=== PATIENT | male | born 1970 | race Caucasian/White ===

== ENCOUNTER 2020-12-04 11:45 | Observation (INO) | payer OTHER ==
[2020-12-04] VITALS (8 sets, daily range): BP systolic 116–144; BP diastolic 70–87
[~2020-12-04] VITALS: Ht 190.5 cm; Wt 164.0 kg
[2020-12-04 15:11] LABS: BE(vivo) -1.3 mmol/L (-2 to +3); HCO3 23.4 mmol/L (22.0-26.0); PCO2 39.3 mmHg (35.0-45.0); pH 7.392 (7.360-7.450); sO2 96.6 % (92.0-98.0)
[2020-12-04 15:25] LABS: ABSOLUTE NEUTROPHILS 15.1 thou/uL (1.4-8.2); BASOPHILS 0.1 % (0.0-2.0); EOSINOPHILS 1.9 % (0.0-3.0); HEMATOCRIT 42.4 % (42.0-52.0); HEMOGLOBIN 13.3 gm/dL (14.0-18.0); LYMPHOCYTES 4.2 % (24.0-44.0); MCH 26.6 pg (26.0-34.0); MCHC 31.3 g/dL (28.0-37.0); MCV 84.8 fL (80.0-100.0); MONOCYTES 8.9 % (1.0-8.0); PLATELET COUNT 197 thou/uL (150-400); POLYS 84.9 % (36.0-66.0); RDW 17.9 % (10.5-14.5); WBC 17.7 thou/uL (4.0-11.0)
[2020-12-04 15:56] LABS: CALCIUM 8.5 mg/dL (8.5-10.1); CREATININE 6.3 mg/dL (0.7-1.3); POTASSIUM 3.9 mmol/L (3.5-5.1)
[2020-12-04 16:01] LABS: ALBUMIN 1.8 g/dL (3.4-5.0); DIRECT BILIRUBIN 0.7 mg/dL (<0.1-0.2); MAGNESIUM 2.4 mg/dL (1.8-2.4); TOTAL BILIRUBIN 1.3 mg/dL (0.2-1.0); TOTAL PROTEIN 6.8 g/dL (6.4-8.2)
[2020-12-04 16:36] LABS: INR 1.14; PROTIME 12.4 Seconds (10.5-12.1)
[2020-12-04 17:01] LABS: FIBRINOGEN > 860 mg/dL (201-437)
[2020-12-04 17:52] LABS: URINE BILIRUBIN NEGATIVE (Negative); URINE BLOOD 2+ (Negative); URINE CLARITY SL CLOUDY; URINE COLOR YELLOW; URINE GLUCOSE-RANDOM* NEGATIVE (Negative); URINE KETONES NEGATIVE (Negative); URINE LEUKOCYTES-REFLEX TRACE (Negative); URINE NITRITE-REFLEX NEGATIVE (Negative); URINE PROTEIN (DIPSTICK) NEGATIVE (Negative); URINE SPECIFIC GRAVITY <= 1.005 (1.005-1.035); URINE UROBILINOGEN 0.2 E.U./dl (0.2-1.0)
[2020-12-04 18:12] LABS: SQUAMOUS 0-3 Few /LPF (0-3)
[2020-12-04 18:15] LABS: BACTERIA-REFLEX 1-9 Few /HPF (None Seen); URINE RBC 3-10 Few /HPF (NONE SEEN); URINE WBC-REFLEX 6-15 Few /HPF (0-5)
[2020-12-04 18:17] LABS: FINE GRANULAR CASTS 4-10 Moderate /LPF (None Seen); HYALINE CASTS 0-3 Few /LPF (None Seen)
[2020-12-04 18:18] LABS: COARSE GRANULAR CASTS 4-10 Moderate /LPF (None Seen)
--- NOTE | 2020-12-04 19:29 | NUR ---
PT ADMITTED [facility] PT. DISCUSSION WITH FAMILY THIS EVENING REGARDING CODE STATUS, FAMILY WOULD LIKE PT TO BE FULL CODE THROUGHOUT [facility] ADMISSION. DR PINA CALLED AT 1729 REGARDING NEED FOR PT LIVER BIOPSY. AFTER CONVERSATION BETWEEN THIS RN AND MTN DR PINA STATED THAT BIOPSY WOULD BE DONE TOMORROW.
[2020-12-04 21:26] LABS: ABSOLUTE NEUTROPHILS 15.6 thou/uL (1.4-8.2); BASOPHILS 0.7 % (0.0-2.0); HEMATOCRIT 41.4 % (42.0-52.0); HEMOGLOBIN 13.3 gm/dL (14.0-18.0); LYMPHOCYTES 1.8 % (24.0-44.0); MCH 26.9 pg (26.0-34.0); MCHC 32.2 g/dL (28.0-37.0); MCV 83.5 fL (80.0-100.0); MONOCYTES 6.4 % (1.0-8.0); PLATELET COUNT 200 thou/uL (150-400); POLYS 90.1 % (36.0-66.0); RBC 4.96 mil/uL (4.50-6.00); RDW 17.7 % (10.5-14.5); WBC 17.3 thou/uL (4.0-11.0)
--- NOTE | 2020-12-04 21:41 | NUR ---
Labs drawn at 2044 per [facility] Protocol including Covid PCR swab. Pt now on way to CT scan for CT of abdomen.
[2020-12-04 21:49] LABS: ALBUMIN 1.8 g/dL (3.4-5.0); CALCIUM 8.8 mg/dL (8.5-10.1); CREATININE 6.3 mg/dL (0.7-1.3); DIRECT BILIRUBIN 0.9 mg/dL (<0.1-0.2); MAGNESIUM 2.3 mg/dL (1.8-2.4); PHOSPHORUS 7.3 mg/dL (2.6-4.7); POTASSIUM 4.5 mmol/L (3.5-5.1); TOTAL BILIRUBIN 1.5 mg/dL (0.2-1.0); TOTAL PROTEIN 7.3 g/dL (6.4-8.2)
[2020-12-04 21:56] LABS: APTT 41.6 Seconds (24.5-32.8); INR 1.14; PROTIME 12.4 Seconds (10.5-12.1)
--- NOTE | 2020-12-04 22:24 | NUR ---
Pt back from CT without incident
[2020-12-05] VITALS (16 sets, daily range): BP systolic 122–151; BP diastolic 80–94
[2020-12-05 05:02] LABS: APTT 41.2 Seconds (24.5-32.8); INR 1.17; PROTIME 12.7 Seconds (10.5-12.1)
[2020-12-05 05:14] LABS: ABSOLUTE NEUTROPHILS 15.9 thou/uL (1.4-8.2); BASOPHILS 0.2 % (0.0-2.0); HEMOGLOBIN 13.4 gm/dL (14.0-18.0); LYMPHOCYTES 1.3 % (24.0-44.0); MCH 27.1 pg (26.0-34.0); MCHC 31.9 g/dL (28.0-37.0); MONOCYTES 1.9 % (1.0-8.0); PLATELET COUNT 197 thou/uL (150-400); POLYS 96.6 % (36.0-66.0); RBC 4.94 mil/uL (4.50-6.00); RDW 17.5 % (10.5-14.5); WBC 16.4 thou/uL (4.0-11.0)
[2020-12-05 05:25] LABS: ALBUMIN 1.8 g/dL (3.4-5.0); CALCIUM 8.7 mg/dL (8.5-10.1); CREATININE 6.2 mg/dL (0.7-1.3); DIRECT BILIRUBIN 0.7 mg/dL (<0.1-0.2); MAGNESIUM 2.4 mg/dL (1.8-2.4); PHOSPHORUS 9.2 mg/dL (2.5-4.9); TOTAL BILIRUBIN 1.2 mg/dL (0.2-1.0); TOTAL PROTEIN 7.3 g/dL (6.4-8.2)
[2020-12-05 05:44] LABS: POTASSIUM 5.5 mmol/L (3.5-5.1)
--- NOTE | 2020-12-05 08:15 | NUR ---
LIVER BIOPSY DONE AT BED SIDE BY DR. HOFF USING ULTRASOUND.
[2020-12-05 08:27] LABS: BE(vivo) -3.3 mmol/L (-2 to +3); PO2 79.7 mmHg (80.0-100.0); pH 7.427 (7.360-7.450); sO2 96.2 % (92.0-98.0)
[2020-12-05 09:13] LABS: ABSOLUTE NEUTROPHILS 14.2 thou/uL (1.4-8.2); BASOPHILS 0.3 % (0.0-2.0); HEMATOCRIT 39.9 % (42.0-52.0); HEMOGLOBIN 12.9 gm/dL (14.0-18.0); LYMPHOCYTES 2.2 % (24.0-44.0); MCH 27.1 pg (26.0-34.0); MCHC 32.3 g/dL (28.0-37.0); MCV 83.8 fL (80.0-100.0); MONOCYTES 1.4 % (1.0-8.0); PLATELET COUNT 200 thou/uL (150-400); POLYS 96.1 % (36.0-66.0); RBC 4.76 mil/uL (4.50-6.00); RDW 17.3 % (10.5-14.5); WBC 14.8 thou/uL (4.0-11.0)
[2020-12-05 09:49] LABS: ALBUMIN 1.8 g/dL (3.4-5.0); CREATININE 6.3 mg/dL (0.7-1.3); DIRECT BILIRUBIN 0.5 mg/dL (<0.1-0.2); MAGNESIUM 2.5 mg/dL (1.8-2.4); PHOSPHORUS 9.7 mg/dL (2.5-4.9); TOTAL BILIRUBIN 0.9 mg/dL (0.2-1.0); TOTAL PROTEIN 7.1 g/dL (6.4-8.2)
[2020-12-05 09:51] LABS: APTT 40.6 Seconds (24.5-32.8); INR 1.2
--- NOTE | 2020-12-05 12:00 | NUR ---
INSULIN DRIP STATRTED AT 1000 AND TITRATED PER [facility] ORDERS. LEVOPHED WEANED OFF MAP IS GREATER THAN 75.
[2020-12-05 14:40] LABS: BASOPHILS 0.3 % (0.0-2.0); HEMATOCRIT 39.1 % (42.0-52.0); HEMOGLOBIN 12.6 gm/dL (14.0-18.0); LYMPHOCYTES 2.2 % (24.0-44.0); MCH 26.8 pg (26.0-34.0); MCHC 32.3 g/dL (28.0-37.0); MCV 83.2 fL (80.0-100.0); MONOCYTES 2.3 % (1.0-8.0); PLATELET COUNT 209 thou/uL (150-400); POLYS 95.2 % (36.0-66.0); RDW 17.1 % (10.5-14.5); WBC 12.6 thou/uL (4.0-11.0)
[2020-12-05 14:42] LABS: BE(vivo) -2.6 mmol/L (-2 to +3); HCO3 20.4 mmol/L (22.0-26.0); PCO2 30.7 mmHg (35.0-45.0); PO2 69.9 mmHg (80.0-100.0); pH 7.441 (7.360-7.450); sO2 94.8 % (92.0-98.0)
[2020-12-05 15:05] LABS: APTT 41.8 Seconds (24.5-32.8); INR 1.21; PROTIME 13.1 Seconds (10.5-12.1)
[2020-12-05 15:06] LABS: FIBRINOGEN > 860 mg/dL (201-437)
[2020-12-05 15:13] LABS: ALBUMIN 1.7 g/dL (3.4-5.0); CALCIUM 8.7 mg/dL (8.5-10.1); CREATININE 6.4 mg/dL (0.7-1.3); DIRECT BILIRUBIN 0.4 mg/dL (<0.1-0.2); MAGNESIUM 2.5 mg/dL (1.8-2.4); POTASSIUM 4.2 mmol/L (3.5-5.1); TOTAL BILIRUBIN 0.7 mg/dL (0.2-1.0)
[2020-12-05 15:23] LABS: PHOSPHORUS 8.6 mg/dL (2.5-4.9)
--- NOTE | 2020-12-05 17:30 | NUR ---
SPOKE WITH [facility] FROM [facility] CONCERNING URINE OUTPUT, BLOOD SUGAR AND TEMP. ORDERS RECEIVED TO GIVE VANCOMYCIN ONE TIME DOSE AND ZOSYN NOW.
--- NOTE | 2020-12-05 18:15 | NUR ---
SIKH PICTURE, YOEL, AND ARTICLES GIVEN TO PATIENT'S GIRLFRIEND, TRISTA.
--- NOTE | 2020-12-05 18:34 | NUR ---
1650-SPOKE W BROTHERS DANIEL & ABDIFATAH,& SON RAQUEL. ALL ENC TO SAY KAPIL PANCHAL TO PT. EXPLAINED VISITING ENDED AT 1800 & NO ONE WOULD BE ALLOWED BACK (D/W PROJECTOR BOOTH OPERATOR & [facility] REP). AT 0230 THE 3 & JASWANT CAN COME TO E.R. & SECURITY WILL HOLD THEM IN THE E.R. WAITING ROOM UNTIL [facility] COMES TO GET THEM FOR THE HERO WALK WHEN PT GOES TO O.[facility]. BROTHER DANIEL SAID HE UNDERSTOOD.ASKED THEY PASS THE MESSAGE ALONG TO [facility], SAID HE WOULD. NO SUBSTITUTIONS IF ONE DECIDES NOT TO DO IT (PER [facility] & THIS WAS D/W THEM YESTERDAY). SECURITY INFORMED.--VW
--- NOTE | 2020-12-05 19:08 | NUR ---
SEVERAL FAMILY MEMBERS VISITED THE PATIENT THROUGHOUT THE DAY. EMOTIONAL SUPPORT PROVIDED. FAMILY INFORMED ABOUT THE PLAN OF CARE.
[2020-12-05 20:07] LABS: ABSOLUTE NEUTROPHILS 10.1 thou/uL (1.4-8.2); BASOPHILS 0.1 % (0.0-2.0); HEMATOCRIT 38.3 % (42.0-52.0); HEMOGLOBIN 12.6 gm/dL (14.0-18.0); LYMPHOCYTES 2.5 % (24.0-44.0); MCH 27.5 pg (26.0-34.0); MCV 83.5 fL (80.0-100.0); MONOCYTES 4.3 % (1.0-8.0); PLATELET COUNT 215 thou/uL (150-400); POLYS 93.1 % (36.0-66.0); RBC 4.58 mil/uL (4.50-6.00); RDW 17.5 % (10.5-14.5); WBC 10.8 thou/uL (4.0-11.0)
[2020-12-05 20:16] LABS: HCO3 20.3 mmol/L (22.0-26.0); PO2 76.2 mmHg (80.0-100.0); pH 7.433 (7.360-7.450); sO2 95.8 % (92.0-98.0)
[2020-12-05 20:22] LABS: ALBUMIN 1.7 g/dL (3.4-5.0); CALCIUM 8.7 mg/dL (8.5-10.1); CREATININE 6.3 mg/dL (0.7-1.3); DIRECT BILIRUBIN 0.3 mg/dL (<0.1-0.2); MAGNESIUM 2.5 mg/dL (1.8-2.4); POTASSIUM 4.3 mmol/L (3.5-5.1); TOTAL BILIRUBIN 0.6 mg/dL (0.2-1.0); TOTAL PROTEIN 7.1 g/dL (6.4-8.2)
[2020-12-05 20:31] LABS: APTT 40.3 Seconds (24.5-32.8); INR 1.21; PROTIME 13.1 Seconds (10.5-12.1)
[2020-12-05 20:33] LABS: FIBRINOGEN > 860 mg/dL (201-437)
[2020-12-05 23:43] LABS: URINE BILIRUBIN NEGATIVE (Negative); URINE BLOOD 2+ (Negative); URINE CLARITY CLEAR; URINE COLOR YELLOW; URINE GLUCOSE-RANDOM* NEGATIVE (Negative); URINE KETONES NEGATIVE (Negative); URINE LEUKOCYTES NEGATIVE (Negative); URINE NITRITE NEGATIVE (Negative); URINE PROTEIN (DIPSTICK) 1+ (Negative); URINE UROBILINOGEN 0.2 E.U./dl (0.2-1.0)
[2020-12-06 00:16] LABS: BACTERIA 1-9 Few /HPF (None Seen); MUCUS 0-3 Light strn/LPF (None Seen); SQUAMOUS 0-3 Few /LPF (0-3); URINE RBC 3-10 Few /HPF (NONE SEEN); URINE WBC 1-5 Rare /HPF (NONE SEEN)
[2020-12-06 00:17] LABS: CELLULAR CASTS 4-10 Moderate /LPF (None Seen); COARSE GRANULAR CASTS 0-3 Few /LPF (None Seen); CRYSTALS None Seen /LPF (None Seen); HYALINE CASTS 0-3 Few /LPF (None Seen)
[2020-12-06 00:23] VITALS: BP 136/88
--- NOTE | 2020-12-06 00:32 | NUR ---
Unable to get oral or axillary temp to read on pt at midnight check. Bear hugger placed on pt and will continue to monitor temp. [facility] nurse made aware.
[2020-12-06 01:23] VITALS: BP 130/85
[2020-12-06 02:23] VITALS: BP 132/84
--- NOTE | 2020-12-06 03:30 | NUR ---
Pt's family at bedside at 0240 for final good-byes. Transplant team here at 0300. Pt to surgery at 0315.
== END 2020-12-06 09:00 ==
LOC: ICU 11:45 → ICUDONOR 13:43 → SICU 12-06 03:30
PROVIDERS: ADMIT Internal Medicine; ATTEND Internal Medicine
DX: Z00.5 Encounter for examination of potential donor of organ and tissue (principal); Z20.822 Contact with and (suspected) exposure to COVID-19
CPT/HCPCS: 50101; 51046; 56526; 56528; 57103; 58918; 62110; 62900; 65002